=== PATIENT | female | born 1985 | race American Indian/Alaskan Native ===

== ENCOUNTER → 2017-10-03 14:15 | Emergency (ER) | payer MEDICAID | END | disposition left against medical advice (07) | LOC: ED 14:15 | DX: R51 Headache (principal); R22.2 Localized swelling, mass and lump, trunk; Z53.21 Procedure and treatment not carried out due to patient leaving prior to being seen by health care provider ==

== ENCOUNTER 2017-10-11 20:17 | Emergency (ER) | payer SELFPAY ==
[2017-10-11 20:26] VITALS: BP 133/67
[2017-10-11 21:09] LABS: HCG Qualitative,Urine Negative (Negative)
[2017-10-11 21:12] LABS: Bilirubin,Urine NEG (Negative); Blood,Urine MOD (Negative); Color,Urine Yellow (Yellow); Mucus,Urine FEW /HPF; Protein,Urine <15 mg/dL mg/dL (Negative)
--- NOTE | 2017-10-11 22:48 | Emergency Department Report ---
ED Female HPI - General Chief complaint: Urogenital-Female Stated complaint: URINE PROBLEMS Time Seen by Provider: 10/11/17 22:44 Source: patient Mode of arrival: Ambulatory Limitations: No Limitations - History of Present Illness Initial comments: This is a 31-year-old female nontoxic, well nourished in appearance, no acute signs of distress presents to the ED with c/o of dysuria, polyuria and urinary frequency 1 day. Patient denies any vaginal pain or swelling. Patient denies any abdominal or pelvic pain. Patient denies any back pain. Patient denies any vaginal discharge, ulcers or lesions. Patient denies any nausea, vomiting, chest pain, shortness of breathe, fever, chills, headache, back pain, numbness, tingling, stiff neck. Patient denies any other urinary symptoms. Patient stated allergies to oxycodone. MD Complaint: dysuria -: days(s) (1) Radiation: non-radiating Severity: mild Severity scale (0 -10): 3 Quality: burning Consistency: constant Improves with: none Worsens with: urination Associated Symptoms: dysuria. denies: vaginal discharge, vaginal bleeding, abdominal pain, nausea/vomiting, fever/chills, headaches, loss of appetite, hematuria, rash, seizure, shortness of breath, syncope, weakness - Related Data Home Medications Medication Instructions Recorded Confirmed Last Taken acetaZOLAMIDE ER [Diamox Sequels] 1,000 mg PO Q12H 10/11/17 10/11/17 10/11/17 Previous Rx's Medication Instructions Recorded Last Taken Type Sulfamethoxazole/Trimethoprim 1 each PO BID #14 tablet 10/11/17 Unknown Rx [Bactrim DS TAB] Allergies Allergy/AdvReac Type Severity Reaction Status Date / Time oxycodone HCl [From Percocet] Allergy Hives Verified 10/25/13 11:58 ED Review of Systems ROS: Stated complaint: URINE PROBLEMS Other details as noted in HPI Constitutional: denies: chills, fever Eyes: denies: eye pain, eye discharge, vision change ENT: denies: ear pain, throat pain Respiratory: denies: cough, shortness of breath, wheezing Cardiovascular: denies: chest pain, palpitations Endocrine: no symptoms reported Gastrointestinal: denies: abdominal pain, nausea, diarrhea Genitourinary: urgency, dysuria, frequency. denies: hematuria, discharge Musculoskeletal: denies: back pain, joint swelling, arthralgia Skin: denies: rash, lesions Neurological: denies: headache, weakness, paresthesias Psychiatric: denies: anxiety, depression Hematological/Lymphatic: denies: easy bleeding, easy bruising ED Past Medical Hx - Past Medical History Previous Medical History?: No Hx Hypertension: Yes - Surgical History Past Surgical History?: Yes Additional Surgical History: tubal ligation, , hernia - Social History Smoking Status: Current Every Day Smoker Substance Use Type: Marijuana - Medications Home Medications: Home Medications Medication Instructions Recorded Confirmed Last Taken Type Sulfamethoxazole/Trimethoprim 1 each PO BID #14 tablet 10/11/17 Unknown Rx [Bactrim DS TAB] acetaZOLAMIDE ER [Diamox Sequels] 1,000 mg PO Q12H 10/11/17 10/11/17 10/11/17 History ED Physical Exam - General Limitations: No Limitations General appearance: alert, in no apparent distress - Head Head exam: Present: atraumatic, normocephalic - Eye Eye exam: Present: normal appearance - ENT ENT exam: Present: normal exam, mucous membranes moist - Neck Neck exam: Present: normal inspection - Respiratory Respiratory exam: Present: normal lung sounds bilaterally. Absent: respiratory distress - Cardiovascular Cardiovascular Exam: Present: regular rate, normal rhythm. Absent: systolic murmur, diastolic murmur, rubs, gallop - GI/Abdominal GI/Abdominal exam: Present: soft, normal bowel sounds. Absent: distended, tenderness, guarding, rebound, rigid, diminished bowel sounds - Extremities Exam Extremities exam: Present: normal inspection, full ROM, normal capillary refill - Back Exam Back exam: Present: normal inspection, full ROM. Absent: tenderness, CVA tenderness (R), CVA tenderness (L), muscle spasm, paraspinal tenderness, vertebral tenderness, rash noted - Neurological Exam Neurological exam: Present: alert, oriented X3, normal gait - Psychiatric Psychiatric exam: Present: normal affect, normal mood - Skin Skin exam: Present: warm, dry, intact, normal color. Absent: rash ED Course Vital Signs 10/11/17 20:19 Temperature 99.2 F Pulse Rate 114 H Respiratory 20 Rate Blood Pressure 133/67 O2 Sat by Pulse 97 Oximetry - Reevaluation(s) Reevaluation #1: 07/19/18 22:47 Patient is speaking in full sentences with no signs of distress noted. Critical care attestation.: If time is entered above; I have spent that time in minutes in the direct care of this critically ill patient, excluding procedure time. ED Disposition Clinical Impression: UTI (urinary tract infection) Qualifiers: Urinary tract infection type: acute cystitis Hematuria presence: with hematuria Qualified Code(s): N30.01 - Acute cystitis with hematuria Disposition: TO HOME OR SELFCARE Is pt being admited?: No Does the pt Need Aspirin: No Condition: Stable Instructions: Urinary Tract Infection in Women (ED) Additional Instructions: Follow-up with a primary care doctor in 3-5 days or if symptoms worsen and continue return to emergency room as soon as possible. Prescriptions: Sulfamethoxazole/Trimethoprim [Bactrim DS TAB] 1 each PO BID #14 tablet Referrals: PRIMARY CAREMD [Primary Care Provider] - 3-5 Days FRANCO NOVAK MD [Staff Physician] - 3-5 Days [facility] [Outside] - 3-5 Days [facility] [Outside] - 3-5 Days Forms: Work/School Release Form(ED)
== END 2017-10-11 22:59 | disposition home or self-care (01) ==
LOC: ED 20:17
DX: N30.01 Acute cystitis with hematuria (principal); I10 Essential (primary) hypertension; F17.200 Nicotine dependence, unspecified, uncomplicated; F12.10 Cannabis abuse, uncomplicated; Z98.51 Tubal ligation status; Z88.4 Allergy status to anesthetic agent
CPT/HCPCS: 81001; 81025; 82962; 87076; 87086; 87186; 99282

== ENCOUNTER 2018-04-10 21:45 | Emergency (ER) | payer BC, OTHER ==
[2018-04-10 22:05] VITALS: BP 123/70
[2018-04-11] MEDS ORDERED: REGLAN PO ONE (01:18)
[2018-04-11] MEDS ORDERED: BENADRYL PO ONE (01:18)
[2018-04-11] MEDS ORDERED: DECADRON IM ONE (01:18)
[2018-04-11] MEDS ORDERED: TYLENOL PO ONE (01:18)
--- NOTE | 2018-04-11 01:38 | Emergency Department Report ---
ED Headache HPI - General Chief Complaint: Headache Stated Complaint: HEADACHE, DIFFICULTY IN BREATHING Time Seen by Provider: 04/11/18 01:18 - History of Present Illness Initial Comments: Patient is a 32-year-old female with a history of headaches and anxiety who presents for headache frontal 6/10 headache and usual location usual intensity states headache is exacerbated by anxiety headache is relieved by Diamox prescribed by PCP patient is followed by neurology PCP and ophthalmology however has not found social headache headaches for the last couple of years there's no fevers no chills no nausea no vomiting no visual changes or patient does state intermittent photophobia states she often has presented to ED for headache cocktail prescribed same tonight patient follow with PCP as she has scheduled in 2 days or return to emergency department should symptoms worsen there has been no new injury fall or trauma Allergies/Adverse Reactions: Allergies oxycodone HCl [From Percocet] Allergy (Verified 10/25/13 11:58) Hives Home Medications: Ambulatory Orders Sulfamethoxazole/Trimethoprim [Bactrim DS TAB] 1 each PO BID #14 tablet 10/11/17 acetaZOLAMIDE ER [Diamox Sequels] 1,000 mg PO Q12H 10/11/17 Acetaminophen [Tylenol Extra Strength] 1,000 mg PO QID PRN #30 tablet 04/11/18 Metoclopramide [Reglan] 10 mg PO QID PRN #30 tab 04/11/18 diphenhydrAMINE [Benadryl CAP] 25 mg PO Q6HR PRN #30 capsule 04/11/18 ED Review of Systems ROS: Stated complaint: HEADACHE, DIFFICULTY IN BREATHING Other details as noted in HPI Constitutional: denies: chills, fever Eyes: other (photophobia ). denies: eye pain, eye discharge, vision change ENT: denies: ear pain, throat pain, congestion Respiratory: denies: cough, shortness of breath, wheezing Cardiovascular: denies: chest pain, palpitations Endocrine: no symptoms reported Gastrointestinal: denies: abdominal pain, nausea, vomiting, diarrhea Genitourinary: denies: urgency, dysuria, discharge Musculoskeletal: denies: back pain, joint swelling, arthralgia Skin: denies: rash, lesions Neurological: headache Psychiatric: anxiety (stress ). denies: depression Hematological/Lymphatic: denies: easy bleeding, easy bruising ED Past Medical Hx - Past Medical History Previous Medical History?: Yes Hx Hypertension: Yes - Surgical History Past Surgical History?: Yes Additional Surgical History: tubal ligation, , hernia - Social History Smoking Status: Current Every Day Smoker Substance Use Type: Alcohol - Medications Home Medications: Home Medications Medication Instructions Recorded Confirmed Last Taken Type Sulfamethoxazole/Trimethoprim 1 each PO BID #14 tablet 10/11/17 Unknown Rx [Bactrim DS TAB] acetaZOLAMIDE ER [Diamox Sequels] 1,000 mg PO Q12H 10/11/17 10/11/17 10/11/17 History Acetaminophen [Tylenol Extra 1,000 mg PO QID PRN #30 tablet 04/11/18 Unknown Rx Strength] Metoclopramide [Reglan] 10 mg PO QID PRN #30 tab 04/11/18 Unknown Rx diphenhydrAMINE [Benadryl CAP] 25 mg PO Q6HR PRN #30 capsule 04/11/18 Unknown Rx ED Physical Exam - General Limitations: No Limitations General appearance: alert, in no apparent distress - Head Head exam: Present: atraumatic, normocephalic, normal inspection - Eye Eye exam: Present: normal appearance, PERRL, EOMI Pupils: Present: normal accommodation - ENT ENT exam: Present: normal orophraynx, mucous membranes moist, TM's normal bilaterally, normal external ear exam - Neck Neck exam: Present: normal inspection, full ROM. Absent: tenderness, meningismus, lymphadenopathy, thyromegaly - Respiratory Respiratory exam: Present: normal lung sounds bilaterally. Absent: respiratory distress, wheezes, stridor, chest wall tenderness - Cardiovascular Cardiovascular Exam: Present: regular rate, normal rhythm, normal heart sounds. Absent: systolic murmur, diastolic murmur, rubs, gallop - GI/Abdominal GI/Abdominal exam: Present: soft, normal bowel sounds. Absent: tenderness, bruit, hernia - Rectal Rectal exam: Present: deferred - Extremities Exam Extremities exam: Present: normal inspection, full ROM. Absent: tenderness, pedal edema, joint swelling - Back Exam Back exam: Present: normal inspection, full ROM. Absent: tenderness - Neurological Exam Neurological exam: Present: alert, oriented X3, CN II-XII intact, normal gait, reflexes normal. Absent: motor sensory deficit - Expanded Neurological Exam Expanded Patient oriented to: Present: person, place, time Speech: Present: fluid speech Cranial nerves: EOM's Intact: Normal, Gag Reflex: Normal, Tongue Deviation: Normal, Nystagmus: Normal, Facial Sensation: Normal Cerebellar function: Finger to Nose: Normal, Heel to [place]: Normal, Romberg: Normal Upper motor neuron: Shahid Neglect: Normal, Pronator Drift: Normal, Babinski Sign: Normal, Sensory Extinction: Normal Sensory exam: Upper Extremity Light Touch: Normal, Upper Extremity Pin Prick: Normal, Upper Extremity Temperature: Normal, UE 2 Point Discrimination: Normal, Lower Extremity Light Touch: Normal, Lower Extremity Pin Prick: Normal, Lower Extremity Temperature: Normal, LE 2 Point Discrimination: Normal Motor strength exam: RUE: 5, LUE: 5, RLE: 5, LLE: 5 Best Eye Response (Maryann): (4) open spontaneously Best Motor Response (Maryann): (6) obeys commands Best Verbal Response ([place]): (5) oriented [place] Total: 15 - Psychiatric Psychiatric exam: Present: normal affect, normal mood. Absent: homicidal ideation, suicidal ideation - Skin Skin exam: Present: warm, dry, intact, normal color. Absent: rash ED Course Vital Signs 04/10/18 21:54 Temperature 98 F Pulse Rate 90 Respiratory 14 Rate Blood Pressure 123/70 O2 Sat by Pulse 99 Oximetry - Reevaluation(s) Reevaluation #1: pt given decadron, reglan , benadyrl, tylenol, 04/11/18 01:39 ED Medical Decision Making - Medical Decision Making This is an acute exacerbation of chronic headaches headaches improved with administration is given in ED patient has PCP follow-up for same in 2 days patient will be DC'd to home in stable condition at this time with prescription for Benadryl Reglan Tylenol when necessary headache visual return to emergency department should symptoms worsen or return to verbalize agreement and understanding of same patient is currently alert and oriented 3 and a totally steady gait and no neuro deficits no visual changes no nausea vomiting no lightheadedness or dizziness. Critical care attestation.: If time is entered above; I have spent that time in minutes in the direct care of this critically ill patient, excluding procedure time. ED Disposition Clinical Impression: Headache Qualifiers: Headache type: unspecified Headache chronicity pattern: acute headache Intractability: not intractable Qualified Code(s): R51 - Headache Disposition: DC-01 TO HOME OR SELFCARE Is pt being admited?: No Does the pt Need Aspirin: No Condition: Stable Instructions: Acute Headache (ED) Prescriptions: Acetaminophen [Tylenol Extra Strength] 1,000 mg PO QID PRN #30 tablet PRN Reason: Headache diphenhydrAMINE [Benadryl CAP] 25 mg PO Q6HR PRN #30 capsule PRN Reason: Headache Metoclopramide [Reglan] 10 mg PO QID PRN #30 tab PRN Reason: Headache Referrals: PRIMARY CARE, [Referring] - 3-5 Days Forms: Work/School Release Form(ED) Time of Disposition: 01:44
[2018-04-11] MEDS ORDERED: NORCO 5/325 PO ONE (02:09)
[2018-04-11] MEDS ORDERED: NORCO 5/325 ONE (02:11)
== END 2018-04-11 02:30 | disposition home or self-care (01) ==
LOC: ED 21:45
DX: R51 Headache (principal); F41.9 Anxiety disorder, unspecified; I10 Essential (primary) hypertension; F17.200 Nicotine dependence, unspecified, uncomplicated; Z88.5 Allergy status to narcotic agent; Z98.51 Tubal ligation status
CPT/HCPCS: 96372; 99282; J1100

== ENCOUNTER 2018-12-30 19:18 | Emergency (ER) | payer BC ==
--- NOTE | 2018-12-30 19:44 | Emergency Department Report ---
Blank Doc - Documentation Documentation: 33-year-old female that presents with acute on chronic headache. Hx of migrane headaches. Stated symptoms are similar to typical headaches. This initial assessment/diagnostic orders/clinical plan/treatment(s) is/are subject to change based on patient's health status, clinical progression and re- assessment by fellow clinical providers in the ED. Further treatment and workup at subsequent clinical providers discretion. Patient/guardians urged not to elope from the ED as their condition may be serious if not clinically assessed and managed. Initial orders include: 1- Patient sent to [facility] for further evaluation and treatment
[2018-12-31] MEDS ORDERED: diphenhydrAMINE 25 MG CAP PO ONE
[2018-12-31] MEDS ORDERED: METOCLOPRAMIDE 10 MG TAB PO ONE
[2018-12-31] MEDS ORDERED: BUTALB/ACETAMINOPHEN/CAFFEINE TAB PO ONE
[2018-12-31] MEDS ORDERED: KETOROLAC 30 MG/1 ML INJ IM ONE
--- NOTE | 2018-12-31 01:02 | Emergency Department Report ---
ED Headache HPI - General Chief Complaint: Headache Stated Complaint: MIGRAINE/HX Time Seen by Provider: 12/30/18 19:42 Source: patient Exam Limitations: no limitations - History of Present Illness Initial Comments: Patient is a 33-year-old -[place] female with a history of chronic migraine headaches who presents to the ED with acute onset persistent severe frontal and occipital headaches with photophobia for the last 7 hours. Patient states that the pain has been persistent and constant despite taking [id number] vacations. Patient denies nausea, vomiting, change in vision, dizziness, palpitation, neck pain, chest pain, shortness of breath, sore throat, nasal and sinus congestion, fever, chills, cough, traumatic injury or numbness and tingling or weakness of upper and lower extremities bilaterally. Timing/Duration: 4-6 hours Quality: severe, sharp Head Injury Location: frontal, occipital Recent Head Trauma: no recent headache/trauma Modifying Factors: worse with: cold therapy, exposure to light, immobilization, movement Associated Symptoms: denies symptoms. denies: confusion, fatigue, facial pain, fever/chills, flushing, loss of consciousness, nausea/vomiting, nasal congestion, nasal drainage, numbness in legs/feet, seizures, sinus infection, stiff neck, vision changes, weakness Allergies/Adverse Reactions: Allergies oxycodone HCl [From Percocet] Allergy (Verified 10/25/13 11:58) Hives Home Medications: Ambulatory Orders ALBUTEROL Inhaler (OR & NICU) [ProAir HFA Inhaler] 2 puff IH QID PRN #1 inhalation 05/07/18 Acetaminophen [Tylenol Extra Strength] 500 mg PO BID PRN 05/07/18 Azithromycin [Zithromax Z-AQUILES] 250 mg PO DAILY 1 Days tab 05/07/18 Hydrocortisone 2.5% [Hytone 2.5% CREAM] 1 applicatio TP BID #1 tube 05/07/18 Prednisone [predniSONE 10 mg (6-Day Pack, 21 Tabs)] 10 mg PO .TAPER #1 tab.ds.pk 05/07/18 Butalb/Acetamin/Caff 50-325-40 [Fioricet 50-325-40] 1 tab PO Q6HR PRN #15 tab 12/31/18 Cyclobenzaprine [Flexeril] 10 mg PO Q8H PRN #15 tablet 12/31/18 Ketorolac [Toradol] 10 mg PO Q6H PRN #20 tablet 12/31/18 Promethazine [Phenergan] 25 mg PO Q6HR PRN #24 tab 12/31/18 ED Review of Systems ROS: Stated complaint: MIGRAINE/HX Other details as noted in HPI Constitutional: denies: chills, fever Eyes: denies: eye pain, eye discharge, vision change ENT: denies: ear pain, throat pain Respiratory: denies: cough, shortness of breath, wheezing Cardiovascular: denies: chest pain, palpitations Endocrine: no symptoms reported Gastrointestinal: denies: abdominal pain, nausea, diarrhea Genitourinary: denies: urgency, dysuria, discharge Musculoskeletal: denies: back pain, joint swelling, arthralgia Skin: denies: rash, lesions Neurological: headache. denies: weakness, paresthesias Psychiatric: denies: anxiety, depression Hematological/Lymphatic: denies: easy bleeding, easy bruising ED Past Medical Hx - Past Medical History Hx Hypertension: Yes Hx Headaches / Migraines: Yes Additional medical history: HEAD PRESSURE - Surgical History Additional Surgical History: tubal ligation, , hernia - Social History Smoking Status: Current Every Day Smoker Substance Use Type: None - Medications Home Medications: Home Medications Medication Instructions Recorded Confirmed Last Taken Type ALBUTEROL Inhaler (OR & NICU) 2 puff IH QID PRN #1 inhalation 05/07/18 Unknown Rx [ProAir HFA Inhaler] Acetaminophen [Tylenol Extra 500 mg PO BID PRN 05/07/18 05/07/18 Unknown History Strength] Azithromycin [Zithromax Z-AQUILES] 250 mg PO DAILY 1 Days tab 05/07/18 Unknown Rx Hydrocortisone 2.5% [Hytone 2.5% 1 applicatio TP BID #1 tube 05/07/18 Unknown Rx CREAM] Prednisone [predniSONE 10 mg 10 mg PO .TAPER #1 tab.ds.pk 05/07/18 Unknown Rx (6-Day Pack, 21 Tabs)] Butalb/Acetamin/Caff 50-325-40 1 tab PO Q6HR PRN #15 tab 12/31/18 Unknown Rx [Fioricet 50-325-40] Cyclobenzaprine [Flexeril] 10 mg PO Q8H PRN #15 tablet 12/31/18 Unknown Rx Ketorolac [Toradol] 10 mg PO Q6H PRN #20 tablet 12/31/18 Unknown Rx Promethazine [Phenergan] 25 mg PO Q6HR PRN #24 tab 12/31/18 Unknown Rx ED Physical Exam - General Limitations: No Limitations General appearance: alert, in no apparent distress - Head Head exam: Present: atraumatic, normocephalic, normal inspection - Eye Eye exam: Present: normal appearance, PERRL, EOMI Pupils: Present: normal accommodation - ENT ENT exam: Present: normal exam, normal orophraynx, mucous membranes moist, TM's normal bilaterally, normal external ear exam - Neck Neck exam: Present: normal inspection, full ROM - Respiratory Respiratory exam: Present: normal lung sounds bilaterally. Absent: respiratory distress, wheezes, rales, rhonchi, stridor, chest wall tenderness, accessory muscle use, decreased breath sounds, prolonged expiratory - Cardiovascular Cardiovascular Exam: Present: regular rate, normal rhythm, normal heart sounds. Absent: systolic murmur, diastolic murmur, rubs, gallop - GI/Abdominal GI/Abdominal exam: Present: soft, normal bowel sounds. Absent: tenderness, guarding, rebound - Extremities Exam Extremities exam: Present: normal inspection, full ROM, normal capillary refill - Back Exam Back exam: Present: normal inspection, full ROM. Absent: muscle spasm, paraspinal tenderness - Neurological Exam Neurological exam: Present: alert, oriented X3, CN II-XII intact, normal gait, reflexes normal - Psychiatric Psychiatric exam: Present: normal affect, normal mood - Skin Skin exam: Present: warm, dry, intact, normal color. Absent: rash ED Course Vital Signs 12/30/18 12/30/18 12/31/18 19:38 19:43 00:26 Temperature 98.8 F 98.8 F Pulse Rate 97 H 98 H Respiratory 18 18 20 Rate Blood Pressure 123/80 123/80 O2 Sat by Pulse 100 100 Oximetry 12/31/18 00:27 Temperature Pulse Rate Respiratory 20 Rate Blood Pressure O2 Sat by Pulse Oximetry - Reevaluation(s) Reevaluation #1: 12/31/18 01:01 This is a 33-year-old female who presented to the ED with complaint of acute exacerbation of her chronic migraine headaches for about 7 hours despite taking [id number] medications. In the ED, patient is alert and oriented 3 and is not in distress. Patient was treated in the ED with pain medications and observed in the ED for about one hour. On reevaluation, patient's headache improved significantly and photophobia resolved. Patient was discharged home on her regular chronic migraine headache medications including divalproex and Imitrex, and was advised to follow-up with her primary care physician in 5-7 days for reevaluation. Patient was also advised to return to the ED immediately if symptoms get worse. ED Medical Decision Making - Medical Decision Making This is a 33-year-old female who presented to the ED with complaint of acute exacerbation of her chronic migraine headaches for about 7 hours despite taking [id number] medications. In the ED, patient is alert and oriented 3 and is not in distress. Patient was treated in the ED with pain medications and observed in the ED for about one hour. On reevaluation, patient's headache improved significantly and photophobia resolved. Patient was discharged home on her regular chronic migraine headache medications including divalproex and Imitrex, and was advised to follow-up with her primary care physician in 5-7 days for reevaluation. Patient was also advised to return to the ED immediately if symptoms get worse. - Differential Diagnosis Migraine headache; tension type headache, sinus headache, sinusitis Critical care attestation.: If time is entered above; I have spent that time in minutes in the direct care of this critically ill patient, excluding procedure time. ED Disposition Clinical Impression: Migraine headache without aura Qualifiers: Status migrainosus presence: without status migrainosus Intractability: not intractable Qualified Code(s): G43.009 - Migraine without aura, not intractable, without status migrainosus Disposition: DC-01 TO HOME OR SELFCARE Is pt being admited?: No Does the pt Need Aspirin: No Condition: Stable Instructions: Migraine Headache (ED) Additional Instructions: Take medications with food, drink plenty of fluids and follow-up with your primary care physician in 5-7 days for reevaluation. Return to the ED immediately if symptoms get worse. Prescriptions: Butalb/Acetamin/Caff 50-325-40 [Fioricet 50-325-40] 1 tab PO Q6HR PRN #15 tab PRN Reason: Headache Cyclobenzaprine [Flexeril] 10 mg PO Q8H PRN #15 tablet PRN Reason: Muscle Spasm Promethazine [Phenergan] 25 mg PO Q6HR PRN #24 tab PRN Reason: Nausea Ketorolac [Toradol] 10 mg PO Q6H PRN #20 tablet PRN Reason: Pain Referrals: PRIMARY CARE, [Primary Care Provider] - 3-5 Days Forms: Work/School Release Form(ED) Time of Disposition: 01:03 Print Language: URUGUAYAN
[2018-12-31 01:53] VITALS: BP 131/82
== END 2018-12-31 01:53 | disposition home or self-care (01) ==
LOC: ED 19:18
DX: G43.009 Migraine without aura, not intractable, without status migrainosus (principal); I10 Essential (primary) hypertension; F17.200 Nicotine dependence, unspecified, uncomplicated; Z98.51 Tubal ligation status; Z79.899 Other long term (current) drug therapy; Z88.8 Allergy status to other drugs, medicaments and biological substances
CPT/HCPCS: 96372; 99283; J1885

== ENCOUNTER 2020-05-06 01:35 | Emergency (ER) | payer BC, MEDICAID, OTHER ==
--- NOTE | 2020-05-06 02:07 | Emergency Department Report ---
ED General Adult HPI - General Chief complaint: Earache Stated complaint: FEELING PRESSURE IN EYES/HEAD Source: patient Mode of arrival: Ambulatory Limitations: No Limitations - History of Present Illness Initial comments: Patient is a 34-year-old -[place] female with a history of hypothyroidism, hypertension, migraine headaches and obesity who presents to the ED with complaint of acute onset painful anterior cervical lymph nodes with mild swelling and right ear pressure as well as frontal and maxillary sinus pressure and pain with a headache for the last 2 weeks. Patient states that she was recently diagnosed with hypothyroidism by her primary care physician and has an appointment with him in 24 hours for reevaluation. Patient denies chest pain, fever, chills, cough, dizziness, syncope, sore throat, abdominal pain, diarrhea, dysuria, back pain, neck pain, palpitations, nausea and vomiting or change in vision. MD Complaint: swollen painful cervical lymph nodes; headache; right ear pressure -: Sudden, week(s) (2) Location: head Radiation: non-radiation Severity scale (0 -10): 7 Quality: aching, sharp Consistency: constant Improves with: none Worsens with: none Associated Symptoms: denies other symptoms, headaches. denies: confusion, chest pain, cough, diaphoresis, fever/chills, loss of appetite, malaise, nausea/vomiting, rash, seizure, shortness of breath, syncope, weakness Treatments Prior to Arrival: none - Related Data Home Medications Medication Instructions Recorded Confirmed Last Taken Acetaminophen [Tylenol Extra 500 mg PO BID PRN 05/07/18 05/07/18 Unknown Strength] Previous Rx's Medication Instructions Recorded Last Taken Type Albuterol Mdi (or & Nicu Only) 2 puff IH QID PRN #1 inhalation 05/07/18 Unknown Rx [ProAir HFA Inhaler] Azithromycin [Zithromax Z-AQUILES] 250 mg PO DAILY 1 Days tab 05/07/18 Unknown Rx Hydrocortisone 2.5% [Hytone 2.5% 1 applicatio TP BID #1 tube 05/07/18 Unknown Rx CREAM] Prednisone [predniSONE 10 mg 10 mg PO .TAPER #1 tab.ds.pk 05/07/18 Unknown Rx (6-Day Pack, 21 Tabs)] Butalb/Acetamin/Caff 50-325-40 1 tab PO Q6HR PRN #15 tab 12/31/18 Unknown Rx [Fioricet 50-325-40] Cyclobenzaprine [Flexeril] 10 mg PO Q8H PRN #15 tablet 12/31/18 Unknown Rx Ketorolac [Toradol] 10 mg PO Q6H PRN #20 tablet 12/31/18 Unknown Rx Promethazine [Phenergan] 25 mg PO Q6HR PRN #24 tab 12/31/18 Unknown Rx Amoxicillin/Potassium Clav 1 each PO Q12H #20 tablet 05/06/20 Unknown Rx [Augmentin 904-697 Tablet] Allergies Allergy/AdvReac Type Severity Reaction Status Date / Time oxycodone HCl [From Percocet] Allergy Hives Verified 10/25/13 11:58 ED Review of Systems ROS: Stated complaint: FEELING PRESSURE IN EYES/HEAD Other details as noted in HPI Constitutional: denies: chills, fever Eyes: denies: eye pain, eye discharge, vision change ENT: ear pain (right ear ). denies: throat pain Respiratory: denies: cough, shortness of breath, wheezing Cardiovascular: denies: chest pain, palpitations Endocrine: no symptoms reported Gastrointestinal: denies: abdominal pain, nausea, diarrhea Genitourinary: denies: urgency, dysuria, discharge Musculoskeletal: denies: back pain, joint swelling, arthralgia Skin: denies: rash, lesions Neurological: denies: headache, weakness, paresthesias Psychiatric: denies: anxiety, depression Hematological/Lymphatic: denies: easy bleeding, easy bruising ED Past Medical Hx - Past Medical History Hx Hypertension: Yes Hx Headaches / Migraines: Yes Additional medical history: HEAD PRESSURE - Surgical History Past Surgical History?: No Additional Surgical History: tubal ligation, , hernia - Social History Smoking Status: Current Every Day Smoker Substance Use Type: None - Medications Home Medications: Home Medications Medication Instructions Recorded Confirmed Last Taken Type Acetaminophen [Tylenol Extra 500 mg PO BID PRN 05/07/18 05/07/18 Unknown History Strength] Albuterol Mdi (or & Nicu Only) 2 puff IH QID PRN #1 inhalation 05/07/18 Unknown Rx [ProAir HFA Inhaler] Azithromycin [Zithromax Z-AQUILES] 250 mg PO DAILY 1 Days tab 05/07/18 Unknown Rx Hydrocortisone 2.5% [Hytone 2.5% 1 applicatio TP BID #1 tube 05/07/18 Unknown Rx CREAM] Prednisone [predniSONE 10 mg 10 mg PO .TAPER #1 tab.ds.pk 05/07/18 Unknown Rx (6-Day Pack, 21 Tabs)] Butalb/Acetamin/Caff 50-325-40 1 tab PO Q6HR PRN #15 tab 12/31/18 Unknown Rx [Fioricet 50-325-40] Cyclobenzaprine [Flexeril] 10 mg PO Q8H PRN #15 tablet 12/31/18 Unknown Rx Ketorolac [Toradol] 10 mg PO Q6H PRN #20 tablet 12/31/18 Unknown Rx Promethazine [Phenergan] 25 mg PO Q6HR PRN #24 tab 12/31/18 Unknown Rx Amoxicillin/Potassium Clav 1 each PO Q12H #20 tablet 05/06/20 Unknown Rx [Augmentin 875-125 Tablet] ED Physical Exam - General Limitations: No Limitations General appearance: alert, in no apparent distress - Head Head exam: Present: atraumatic, normocephalic, normal inspection - Eye Eye exam: Present: normal appearance, PERRL, EOMI Pupils: Present: normal accommodation - ENT ENT exam: Present: normal orophraynx, mucous membranes moist, TM's normal bilaterally, normal external ear exam, other (Palpable frontal and maxillary sinus tenderness; grossly congested nasal passages) - Neck Neck exam: Present: normal inspection, full ROM, lymphadenopathy (Anterior cervical lymphadenopathy and mild swelling). Absent: tenderness - Respiratory Respiratory exam: Present: normal lung sounds bilaterally. Absent: respiratory distress, wheezes, rales, rhonchi, chest wall tenderness, accessory muscle use, decreased breath sounds - Cardiovascular Cardiovascular Exam: Present: normal rhythm, tachycardia, normal heart sounds. Absent: systolic murmur, diastolic murmur, rubs, gallop - GI/Abdominal GI/Abdominal exam: Present: soft, normal bowel sounds. Absent: tenderness, guarding, rebound, hyperactive bowel sounds, hypoactive bowel sounds, organomegaly, bruit - Extremities Exam Extremities exam: Present: normal inspection, full ROM, normal capillary refill - Back Exam Back exam: Present: normal inspection, full ROM. Absent: tenderness, CVA tenderness (R), CVA tenderness (L), muscle spasm, paraspinal tenderness - Neurological Exam Neurological exam: Present: alert, oriented X3, CN II-XII intact, normal gait, reflexes normal - Psychiatric Psychiatric exam: Present: normal affect, normal mood - Skin Skin exam: Present: warm, dry, intact, normal color. Absent: rash ED Course Vital Signs 05/06/20 01:39 Temperature 98.9 F Pulse Rate 101 H Respiratory 14 Rate Blood Pressure 144/101 O2 Sat by Pulse 99 Oximetry ED Medical Decision Making - Medical Decision Making This is a 34-year-old -[place] female with a history of hypothyroidism, hypertension, migraine headaches and obesity who presents to the ED with complaint of acute onset painful anterior cervical lymph nodes with mild swelling and right ear pressure as well as frontal and maxillary sinus pressure and pain with a headache for the last 2 weeks. Patient states that she was recently diagnosed with hypothyroidism by her primary care physician and has an appointment with him in 24 hours for reevaluation. In the ED, patient is alert and oriented x3 and is not in any distress. Based on history and physical exam findings, the patient was discharged home on antibiotics and advised to follow- up with her primary care physician as previously scheduled. Patient was advised return to the ED immediately if symptoms get worse. - Differential Diagnosis Sinusitis; URI; sinus headache; lymphadenopathy; Critical care attestation.: If time is entered above; I have spent that time in minutes in the direct care of this critically ill patient, excluding procedure time. ED Disposition Clinical Impression: Anterior cervical lymphadenopathy Acute maxillary sinusitis Qualifiers: Recurrence: non-recurrent Qualified Code(s): J01.00 - Acute maxillary sinusitis, unspecified Disposition: - TO HOME OR SELFCARE Is pt being admited?: No Does the pt Need Aspirin: No Condition: Stable Instructions: Sinusitis, Adult, [id number], Upper Respiratory Infection, Adult, [id number] Additional Instructions: Take medication with food, drink plenty of fluids and follow-up with your primary care physician in 7 to 10 days for reevaluation. Return to the ED immediately if symptoms get worse. Prescriptions: Amoxicillin/Potassium Clav [Augmentin 875-125 Tablet] 1 each PO Q12H #20 tablet Referrals: MONI GOTTI MD [Staff Physician] - 3-5 Days Time of Disposition: 02:06 Print Language: [place] CITIZ[place]
[2020-05-06 02:28] VITALS: BP 144/101
== END 2020-05-06 02:28 | disposition home or self-care (01) ==
LOC: ED 01:35
DX: R59.0 Localized enlarged lymph nodes (principal); J01.00 Acute maxillary sinusitis, unspecified; I10 Essential (primary) hypertension; G43.909 Migraine, unspecified, not intractable, without status migrainosus; F17.200 Nicotine dependence, unspecified, uncomplicated; Z98.890 Other specified postprocedural states; Z79.2 Long term (current) use of antibiotics; Z79.899 Other long term (current) drug therapy; Z88.8 Allergy status to other drugs, medicaments and biological substances
CPT/HCPCS: 99281